=== PATIENT | male | born 1945 | race Caucasian/White ===

== ENCOUNTER 2019-05-25 10:00 | Outpatient (RCR) | payer MEDICARE, OTHER | END 2019-05-25 10:30 | disposition home or self-care (01) | LOC: PT 10:00 | DX: S41.011A Laceration without foreign body of right shoulder, initial encounter (principal) ==

== ENCOUNTER 2020-03-08 10:00 | Outpatient (RCR) | payer MEDICARE, OTHER | END 2020-03-08 10:30 | LOC: PT 10:00 | DX: M75.101 Unspecified rotator cuff tear or rupture of right shoulder, not specified as traumatic (principal); M75.42 Impingement syndrome of left shoulder ==

== ENCOUNTER 2020-04-26 08:30 | Outpatient (RCR) | payer MEDICARE, OTHER | END 2020-04-26 09:00 | disposition still patient (30) | LOC: PT 08:30 | DX: M75.21 Bicipital tendinitis, right shoulder (principal) ==

== ENCOUNTER 2020-07-25 08:30 | Outpatient (RCR) | payer MEDICARE, OTHER | END 2020-08-01 | disposition home or self-care (01) | LOC: PT | DX: Z98.890 Other specified postprocedural states (principal) ==

== ENCOUNTER 2020-08-08 09:00 | Outpatient (RCR) | payer MEDICARE, OTHER | END 2020-08-08 09:30 | LOC: PT 09:00 | DX: M67.80 Other specified disorders of synovium and tendon, unspecified site (principal); Z98.890 Other specified postprocedural states ==

== ENCOUNTER → 2022-02-12 | Outpatient (CLI) | payer MEDICARE, OTHER | LOC: RAD 10:56 | DX: M77.32 Calcaneal spur, left foot (principal) ==

== ENCOUNTER → 2023-04-15 | Outpatient (CLI) | payer MEDICARE, OTHER | LOC: RAD 08:39 | DX: M25.561 Pain in right knee (principal); M25.562 Pain in left knee ==

== ENCOUNTER → 2023-09-30 | Outpatient (CLI) | payer MEDICARE, OTHER ==
[2023-09-30 13:52] LABS: URINE APPEARANCE CLEAR (CLEAR); URINE COLOR YELLOW (YELLOW)
[2023-09-30 13:55] LABS: PH-URINE 6.5 (5.0 - 8.0); URINE PROTEIN(semi-quant) NEGATIVE (NEGATIVE)
[2023-09-30 13:56] LABS: URINE BILIRUBIN NEGATIVE (NEGATIVE); URINE BLOOD NEGATIVE (NEGATIVE); URINE GLUCOSE NEGATIVE (NEGATIVE); URINE KETONE NEGATIVE (NEGATIVE); URINE LEUKOCYTE ESTERASE NEGATIVE (NEGATIVE); URINE NITRATE NEGATIVE (NEGATIVE); URINE WBC 0-1 /hpf (0-3)
== END ==
LOC: LAB 13:16
PROVIDERS: Student in an Organized Health Care Education/Training Program
DX: R39.16 Straining to void (principal); R30.9 Painful micturition, unspecified

== ENCOUNTER → 2024-05-11 | Outpatient (CLI) | payer OTHER | LOC: RAD 09:42 | DX: M25.562 Pain in left knee (principal); M25.561 Pain in right knee ==

== ENCOUNTER → 2024-09-14 | Outpatient (CLI) | payer OTHER | LOC: RAD 07:49 | DX: M25.562 Pain in left knee (principal); Z96.652 Presence of left artificial knee joint ==